=== PATIENT | male | born 1990 | race Caucasian/White ===

== ENCOUNTER → 2016-03-01 | Outpatient (REF) ==
[~2016-03-01] MED LIST: ULTRAM 50MG TAB50 MG PO; ZOFRAN8 MG PO
== END ==
LOC: WSOH 10:55
DX: Z02.89 Encounter for other administrative examinations (principal)

== ENCOUNTER 2016-04-05 02:51 | Emergency (ER) | payer BC ==
[~2016-04-05] VITALS: Ht 185.4 cm; Wt 90.9 kg
[2016-04-05 02:53] VITALS: TEMP 97.6
[2016-04-05 03:39] LABS: BASO % 0.3 % (0.0-2.0); EOS # 0.2 (0.0-0.7); EOS % 1.3 % (0-4.0); GRAN # 12.7 (1.4-6.5); GRAN % 85.3 % (42.2-75.2); HEMATOCRIT 45.1 % (42.0-52.0); HEMOGLOBIN 16.2 g/dl (13.5-18.0); LYMPH # 1.2 (1.2-3.4); MEAN CELL VOLUME 82 fl (80.0-100.0); MEAN CORPUSCULAR HEMOGLOBIN 30 pg (27.0-31.0); MEAN CORPUSCULAR HGB CONC 36 g/dl (33.0-37.0); MEAN PLATELET VOLUME 10.8 fl (7.4-10.4); MONO # 0.7 (0.1-0.6); MONO % 4.7 % (1.7-9.3); PLATELET COUNT 233 K/mm3 (130-400); RED BLOOD COUNT 5.47 M/mm3 (4.20-5.60); REDCELL DISTRIBUTION WIDTH-CV 12.4 % (11.5-14.5); WHITE BLOOD COUNT 14.8 K/mm3 (4.8-10.8)
[2016-04-05 03:51] LABS: ADJUSTED CALCIUM 9.2 mg/dL (8.4-10.2); ALBUMIN 4.9 gm/dL (3.5-5.0); BILIRUBIN,TOTAL 1.5 mg/dL (0.0-1.0); CALCIUM 9.9 mg/dL (8.4-10.2); CREATININE, serum 0.99 mg/dL (0.66-1.25); POTASSIUM 3.6 mmol/L (3.4-5.0); TOTAL PROTEIN 8.1 gm/dL (6.4-8.2)
[2016-04-05 05:01] LABS: PH 7 (5-8); SQUAMOUS EPITHELIAL 0-2 /hpf; URINE APPEARANCE Clear; URINE BACTERIA None Seen /hpf; URINE BILIRUBIN Negative (NEGATIVE); URINE BLOOD Negative (NEGATIVE); URINE COLOR Yellow; URINE GLUCOSE Negative (NEGATIVE); URINE KETONE 1+ (NEGATIVE); URINE RBC 0-2 /hpf; URINE UROBILINOGEN Negative (NEGATIVE); URINE WBC 0-2 /hpf
[2016-04-05] MEDS ORDERED: ZOFRAN8 MG PO (05:23)
[2016-04-05] MEDS ORDERED: ULTRAM 50MG TAB50 MG PO (05:23)
[2016-04-05 05:41] VITALS: BP 110/73; PULSE 80
== END 2016-04-05 05:41 | disposition home or self-care (01) ==
LOC: COL.ER 02:51
PROVIDERS: Emergency Medicine
DX: E86.9 Volume depletion, unspecified (principal); R10.31 Right lower quadrant pain; R10.11 Right upper quadrant pain; R11.10 Vomiting, unspecified; R19.7 Diarrhea, unspecified; D72.829 Elevated white blood cell count, unspecified
CPT/HCPCS: J1885; J2405; J7030; Q9967

== ENCOUNTER → 2017-05-31 | Outpatient (CLI) | payer BC | LOC: COL.RAD 08:54 | DX: G44.85 Primary stabbing headache (principal) ==

== ENCOUNTER 2018-12-31 16:01 | Emergency (ER) | payer OTHER ==
[~2018-12-31] VITALS: Ht 185.4 cm; Wt 118.2 kg
[2018-12-31 17:07] LABS: BASO % 0.4 % (0.0-2.0); EOS # 0.2 (0.0-0.7); EOS % 2.1 % (0-4.0); GRAN # 5.2 (1.4-6.5); GRAN % 57.7 % (42.2-75.2); HEMATOCRIT 46.1 % (42.0-52.0); HEMOGLOBIN 15.9 g/dl (13.5-18.0); LYMPH # 2.9 (1.2-3.4); LYMPH % 32.4 % (20.0-51.0); MEAN CELL VOLUME 83 fl (80.0-100.0); MEAN CORPUSCULAR HEMOGLOBIN 28 pg (27.0-31.0); MEAN CORPUSCULAR HGB CONC 35 g/dl (33.0-37.0); MEAN PLATELET VOLUME 10.6 fl (7.4-10.4); MONO # 0.6 (0.1-0.6); PLATELET COUNT 284 K/mm3 (130-400); RED BLOOD COUNT 5.59 M/mm3 (4.20-5.60); REDCELL DISTRIBUTION WIDTH-CV 12.3 % (11.5-14.5)
[2018-12-31 17:16] LABS: ALBUMIN 4.9 gm/dL (3.5-5.0); BILIRUBIN,TOTAL 0.4 mg/dL (0.0-1.0); C-REACTIVE PROTEIN 0.6 mg/dL (0.0-0.9); CALCIUM 9.8 mg/dL (8.4-10.2); CREATININE, serum 1.04 (0.66-1.25); POTASSIUM 3.8 mmol/L (3.4-5.0); TOTAL PROTEIN 8.3 gm/dL (6.4-8.2)
[2018-12-31 18:45] VITALS: BP 96/83; PULSE 82; TEMP 98.3
== END 2018-12-31 18:45 | disposition home or self-care (01) ==
LOC: COL.ER 16:01
PROVIDERS: Emergency Medicine
DX: R07.81 Pleurodynia (principal)
CPT/HCPCS: J1885

== ENCOUNTER 2023-11-07 05:54 | Emergency (ER) | payer BC ==
[~2023-11-07] VITALS: Ht 185.4 cm; Wt 118.2 kg
[~2023-11-07 05:54] MED LIST changes: +PERCOCET 325 MG1 TA2 PO; +ZOFRAN ODT4 MG PO
[2023-11-07 06:03] VITALS: TEMP 98.6
[2023-11-07] MEDS ORDERED: CLEOCIN HCL300 MG PO (06:15)
[2023-11-07] MEDS ORDERED: Home HYDROcodone/Acetaminophen 5/325 MG #4 TABS/PACK PO ONE (06:15)
[2023-11-07] MEDS ORDERED: Ketorolac 15 MG/ML VIAL IM ONE (06:15)
[2023-11-07] MEDS ORDERED: Clindamycin 150 MG CAP PO ONE (06:15)
[2023-11-07 06:25] VITALS: BP 122/85; PULSE 84
== END 2023-11-07 06:25 | disposition home or self-care (01) ==
LOC: COL.ER 05:54
DX: K08.89 Other specified disorders of teeth and supporting structures (principal)
CPT/HCPCS: J1885